=== PATIENT | male | born 1945 | race Caucasian/White ===

== ENCOUNTER 2016-05-28 06:36 | Emergency (ER) | payer OTHER ==
[~2016-05-28] VITALS: Ht 170.2 cm; Wt 83.1 kg
[~2016-05-28 06:36] MED LIST: ATORVASTATIN CA40 MG PO; DIOVAN HCT 3201 EAC1 PO; DITROPAN XL10 MG PO; DOXYCYCLINE HY100 M3 PO; MECLIZINE HCL12.5 M1 PO; NORCO 5/3251 TABLET PO; OXYBUTYNIN CHLO10 MG PO; PERCOCET 5/31 TABLET PO; PLAVIX75 MG PO; SKELAXIN800 MG PO; TAMSULOSIN HCL0.4 MG PO; TYLENOL WITH C1 EACH PO; statin; toprol
[2016-05-28 07:27] LABS: HEMATOCRIT 38.7 % (38.0-50.0); MCH 29.6 PG (29.0-34.0); MCHC 33.1 G/DL (30.0-36.0); MCV 89.6 FL (86-99); MEAN PLAT.VOLUME 10.4 uM^3 (9.0-12.4); PLATELET COUNT 267 K/uL (156-360); RBC DIS.WIDTH-SD 42.8 % (39-53); RED BLOOD COUNT 4.32 M/uL (4.00-5.50); WHITE BLOOD COUNT 6.1 K/uL (4.1-10.2)
[2016-05-28 07:54] LABS: ANION GAP 7 MEQ/L (2-14); CHLORIDE 105 MEQ/L (99-109); POTASSIUM 4.1 MEQ/L (3.7-5.4); SAMPLE HEMOLYSIS CHECK 0; SAMPLE ICTERIC CHECK 0; SAMPLE LIPEMIA CHECK 0; SODIUM 137 MEQ/L (136-147); TOTAL BILIRUBIN 0.3 MG/DL (0.0-1.0)
[2016-05-28 08:00] LABS: ALKALINE PHOSPHATASE 59 IU/L (3-129); GFR ESTIMATE (CALCULATED) > 59 mL/min/; GLUCOSE 102 mg/dL (70-99); LIPASE 13 U/L (1.0-51.0); UREA NITROGEN (BUN) 22 mg/dL (9-23)
[2016-05-28] MEDS ORDERED: LO-DOSE ASPIRIN81 M2 PO (08:00)
[2016-05-28 08:04] LABS: TROP-I INTERPRETATION NEGATIVE; TROPONIN-I 0.01 ng/mL (0.0-0.30)
[2016-05-28] MEDS ORDERED: CITRATE OF MAG296 ML PO (09:53)
[2016-05-28 09:55] LABS: ADD MIUA? NO; BILIRUBIN NEGATIVE; BLOOD NEGATIVE; COLOR STRAW ((YELLOW)); GLUCOSE (STRIP) NEGATIVE; KETONES NEGATIVE; LEUKOCYTES NEGATIVE; NITRITE NEGATIVE; PROTEIN (STRIP) NEGATIVE; SPECIFIC GRAVITY 1.027 (1.000-1.030); UROBILINOGEN 0.2 MG/DL (0.2-1.0)
[2016-05-28 10:28] VITALS: BP 145/81
== END 2016-05-28 10:29 | disposition home or self-care (01) ==
LOC: EME 06:36
PROVIDERS: Physician Assistant
DX: R10.10 Upper abdominal pain, unspecified (principal); K59.00 Constipation, unspecified; I10 Essential (primary) hypertension; Z79.02 Long term (current) use of antithrombotics/antiplatelets; Z79.82 Long term (current) use of aspirin
CPT/HCPCS: 71020; 74177; 80053; 81003; 83690; 84484; 85027; 93005; 99281; 99285

== ENCOUNTER 2016-12-27 02:09 | Emergency (ER) | payer OTHER ==
[~2016-12-27] VITALS: Ht 167.6 cm; Wt 83.2 kg
[~2016-12-27 02:09] MED LIST changes: +CITRATE OF MAG296 ML PO; +LO-DOSE ASPIRIN81 M2 PO
[2016-12-27 02:47] LABS: EOSINOPHIL COUNT 0.3 K/uL (0-0.3); HEMATOCRIT 39.3 % (38.0-50.0); IMMATURE GRANULOCYTE (%) 0.2 % (0.0-0.7); INSTRUMENT ABS NEUTROPHIL CT 2.9 K/uL; LYMPHOCYTE COUNT 1.5 K/uL (1.0-2.8); MCH 30.4 PG (29.0-34.0); MCHC 33.1 G/DL (30.0-36.0); MEAN PLAT.VOLUME 10.5 uM^3 (9.0-12.4); MONOCYTE (%) 11.1 % (3-12); MONOCYTE COUNT 0.6 K/uL (0-0.8); NEUTROPHIL (%) 55.4 % (45-76); NEUTROPHIL COUNT 2.9 K/uL (1.8-6.4); PLATELET COUNT 236 K/uL (156-360); RBC DIS.WIDTH-CV 13.2 % (11.8-14.6); RBC DIS.WIDTH-SD 44.9 % (39-53); RED BLOOD COUNT 4.27 M/uL (4.00-5.50); WHITE BLOOD COUNT 5.2 K/uL (4.1-10.2)
[2016-12-27 02:56] LABS: CHLORIDE 105 mEq/L (99-109); POTASSIUM 3.7 mEq/L (3.7-5.4); SODIUM 138 mEq/L (136-147)
[2016-12-27 02:59] LABS: GLUCOSE 107 mg/dL (70-99)
[2016-12-27 03:00] LABS: ANION GAP 5 MEQ/L (2-14); TOTAL BILIRUBIN 0.4 mg/dL (0.0-1.0)
[2016-12-27 03:02] LABS: ALKALINE PHOSPHATASE 71 IU/L (3-129); GFR ESTIMATE (CALCULATED) > 59 mL/min/
[2016-12-27 03:03] LABS: UREA NITROGEN (BUN) 16 mg/dL (9-23)
[2016-12-27 03:04] LABS: DIRECT BILIRUBIN 0.1 mg/dL (0.0-0.3)
[2016-12-27 03:06] LABS: LIPASE 22 U/L (1.0-51.0)
[2016-12-27 03:27] LABS: ADD MIUA? NO; BILIRUBIN NEGATIVE; BLOOD NEGATIVE; COLOR YELLOW ((YELLOW)); GLUCOSE (STRIP) NEGATIVE; KETONES NEGATIVE; LEUKOCYTES NEGATIVE; NITRITE NEGATIVE; PROTEIN (STRIP) 30; SPECIFIC GRAVITY 1.029 (1.000-1.030); UCUL ADDED? NO; UROBILINOGEN 0.2 MG/DL (0.2-1.0)
[2016-12-27] MEDS ORDERED: LIDOCAINE700 MG TP (03:52)
[2016-12-27 06:00] VITALS: BP 168/88
== END 2016-12-27 06:01 | disposition home or self-care (01) ==
LOC: EME 02:09
PROVIDERS: Emergency Medicine
DX: R10.9 Unspecified abdominal pain (principal); K44.9 Diaphragmatic hernia without obstruction or gangrene; K40.90 Unilateral inguinal hernia, without obstruction or gangrene, not specified as recurrent; K57.30 Diverticulosis of large intestine without perforation or abscess without bleeding; R91.1 Solitary pulmonary nodule; I10 Essential (primary) hypertension; Z86.73 Personal history of transient ischemic attack (TIA), and cerebral infarction without residual deficits; Z79.02 Long term (current) use of antithrombotics/antiplatelets; Z79.82 Long term (current) use of aspirin
CPT/HCPCS: 74176; 80048; 80076; 81003; 83690; 85025; 99281; 99285; J7030

== ENCOUNTER 2017-03-30 21:42 | Emergency (ER) | payer OTHER ==
[~2017-03-30] VITALS: Ht 170.2 cm; Wt 90.0 kg
[~2017-03-30 21:42] MED LIST changes: +LIDOCAINE700 MG TP
[2017-03-30 22:14] LABS: HEMATOCRIT 40.9 % (38.0-50.0); MCH 30.4 PG (29.0-34.0); MCHC 34.2 G/DL (30.0-36.0); MCV 88.7 FL (86-99); PLATELET COUNT 263 K/uL (156-360); RBC DIS.WIDTH-SD 42.1 % (39-53); RED BLOOD COUNT 4.61 M/uL (4.00-5.50)
[2017-03-30 22:47] LABS: ALKALINE PHOSPHATASE 75 IU/L (3-129); ALT (GPT) 25 IU/L (3-49); AST (GOT) 21 IU/L (2-34); CHLORIDE 101 MEQ/L (99-109); CREATININE 0.8 MG/DL (0.6-1.3); GFR ESTIMATE (CALCULATED) > 59 mL/min/ (58.99-99999); GLUCOSE 122 mg/dL (70-99); POTASSIUM 3.9 MEQ/L (3.7-5.4); SODIUM 133 MEQ/L (136-147); TOTAL BILIRUBIN 0.4 MG/DL (0.0-1.0); TOTAL PROTEIN 6.6 G/DL (6.4-8.3); UREA NITROGEN (BUN) 18 mg/dL (9-23)
[2017-03-30] MEDS ORDERED: OMEPRAZOLE40 M1 PO (23:55)
[2017-03-31 02:19] VITALS: BP 162/89
== END 2017-03-31 02:19 | disposition home or self-care (01) ==
LOC: EME 21:42
DX: R10.31 Right lower quadrant pain (principal); I10 Essential (primary) hypertension; Z79.82 Long term (current) use of aspirin; Z86.73 Personal history of transient ischemic attack (TIA), and cerebral infarction without residual deficits; Z88.1 Allergy status to other antibiotic agents
CPT/HCPCS: 80053; 81003; 85027; 99281; 99284

== ENCOUNTER 2017-04-03 14:13 | Emergency (ER) | payer OTHER ==
[~2017-04-03] VITALS: Ht 170.2 cm; Wt 89.0 kg
[~2017-04-03 14:13] MED LIST changes: +OMEPRAZOLE40 M1 PO
[2017-04-03] MEDS ORDERED: LOTRIMIN AF SP150 GM TP (17:03)
[2017-04-03] MEDS ORDERED: NEURONTIN100 MG PO (17:03)
[2017-04-03] MEDS ORDERED: KEFLEX500 MG PO (17:03)
[2017-04-03] MEDS ORDERED: ULTRAM50 MG PO (17:03)
[2017-04-03 17:15] VITALS: BP 145/68
== END 2017-04-03 17:17 | disposition home or self-care (01) ==
LOC: EME 14:13
DX: B35.3 Tinea pedis (principal); I10 Essential (primary) hypertension; Z79.82 Long term (current) use of aspirin; Z79.02 Long term (current) use of antithrombotics/antiplatelets; Z88.1 Allergy status to other antibiotic agents
CPT/HCPCS: 99281; 99283

== ENCOUNTER → 2017-04-20 | Outpatient (CLI) | payer OTHER ==
[~2017-04-20] MED LIST changes: +CEFTIN250 MG PO; +KEFLEX500 MG PO; +LEVAQUIN500 MG PO; +LOTRIMIN AF SP150 GM TP; +NEURONTIN100 MG PO; +ULTRAM50 MG PO
[2017-04-20 17:57] LABS: APPEARANCE CLEAR, COLORLESS; CSF TUBE NUMBER TUBE #4; RED CELL COUNT 27 /MM^3 (0-1)
[2017-04-20 17:58] LABS: WHITE CELL COUNT 0 /MM^3 (0-5)
[2017-04-20 18:00] LABS: CSF EOSINOPHILS 0 % (0-25)
[2017-04-20 18:01] LABS: MONONUCLEAR WBC'S 0 % (50-90); POLYNUCLEAR WBC'S 0 % (0-3)
[2017-04-20 18:36] LABS: APPEARANCE (RECHECK) CLEAR, COLORLESS; CSF TUBE NUMBER (RECHECK) TUBE #1; RED CELL COUNT (RECHECK) 58 /MM^3 (0-1)
[2017-04-20 18:37] LABS: GLUCOSE, CSF 76 mg/dL (40-80)
== END | disposition home or self-care (01) ==
LOC: RAD 14:45
PROVIDERS: Psychiatry & Neurology Neurology
PROC: 009U3ZZ Drainage of Spinal Canal, Percutaneous Approach (ICD-10-PCS; principal; 2017-04-20)
DX: R27.0 Ataxia, unspecified (principal)
CPT/HCPCS: 36415; 62270; 77003; 82746; 82945; 85652; 86592 90; 87070; 87205; 88108; 89051

== ENCOUNTER 2017-04-25 02:46 | Emergency (ER) | payer OTHER ==
[~2017-04-25] VITALS: Ht 167.6 cm; Wt 86.8 kg
[~2017-04-25 02:46] MED LIST changes: -CEFTIN250 MG PO; -LEVAQUIN500 MG PO
[2017-04-25 03:51] LABS: BASOPHIL (%) 0.4 % (0-1); EOSINOPHIL (%) 3.9 % (0-5); EOSINOPHIL COUNT 0.3 K/uL (0-0.3); HEMATOCRIT 38.2 % (38.0-50.0); IMMATURE GRANULOCYTE (%) 0.3 % (0.0-0.7); LYMPHOCYTE (%) 10.8 % (15-42); LYMPHOCYTE COUNT 0.8 K/uL (1.0-2.8); MCH 30.2 PG (29.0-34.0); MCV 88.8 FL (86-99); MONOCYTE (%) 8.4 % (3-12); MONOCYTE COUNT 0.6 K/uL (0-0.8); NEUTROPHIL (%) 76.2 % (45-76); NEUTROPHIL COUNT 5.8 K/uL (1.8-6.4); PLATELET COUNT 224 K/uL (156-360); RBC DIS.WIDTH-SD 42.4 % (39-53); WHITE BLOOD COUNT 7.7 K/uL (4.1-10.2)
[2017-04-25 04:01] LABS: CHLORIDE 106 mEq/L (99-109); POTASSIUM 4.2 mEq/L (3.7-5.4); SODIUM 138 mEq/L (136-147)
[2017-04-25 04:02] LABS: GLUCOSE 101 mg/dL (70-99)
[2017-04-25 04:06] LABS: CREATININE 0.8 mg/dL (0.6-1.3); GFR ESTIMATE (CALCULATED) > 59 mL/min/ (58.99-99999)
[2017-04-25 04:07] LABS: UREA NITROGEN (BUN) 19 mg/dL (9-23)
[2017-04-25] MEDS ORDERED: LEVAQUIN500 MG PO (04:51)
[2017-04-25 05:15] VITALS: BP 148/74
[2017-04-25] MEDS ORDERED: CEFTIN250 MG PO (19:36)
== END 2017-04-25 05:15 | disposition home or self-care (01) ==
LOC: EME 02:46
PROVIDERS: Emergency Medicine
DX: J20.9 Acute bronchitis, unspecified (principal); J06.9 Acute upper respiratory infection, unspecified; S93.402A Sprain of unspecified ligament of left ankle, initial encounter; X50.1XXA Overexertion from prolonged static or awkward postures, initial encounter; Z86.73 Personal history of transient ischemic attack (TIA), and cerebral infarction without residual deficits; I10 Essential (primary) hypertension; Z79.82 Long term (current) use of aspirin; Z79.02 Long term (current) use of antithrombotics/antiplatelets; Z88.1 Allergy status to other antibiotic agents
CPT/HCPCS: 71046; 73610; 80048; 85025; 87502; 99281; 99284

== ENCOUNTER 2017-04-25 15:46 | Emergency (ER) | payer OTHER ==
[~2017-04-25] VITALS: Ht 167.6 cm; Wt 88.5 kg
[~2017-04-25 15:46] MED LIST changes: +LEVAQUIN500 MG PO
[2017-04-25 16:26] LABS: APPEARANCE CLEAR ((CLEAR)); BILIRUBIN NEGATIVE; BLOOD NEGATIVE; COLOR YELLOW ((YELLOW)); GLUCOSE (STRIP) NEGATIVE; KETONES NEGATIVE; LEUKOCYTES NEGATIVE; NITRITE NEGATIVE; PROTEIN (STRIP) NEGATIVE; SPECIFIC GRAVITY 1.018 (1.000-1.030); UCUL ADDED? NO; UROBILINOGEN 0.2 MG/DL (0.2-1.0)
[2017-04-25 16:49] LABS: BASOPHIL (%) 0.1 % (0-1); EOSINOPHIL (%) 1.3 % (0-5); EOSINOPHIL COUNT 0.1 K/uL (0-0.3); HEMATOCRIT 38.8 % (38.0-50.0); HEMOGLOBIN 13.1 G/DL (12.5-16.6); IMMATURE GRANULOCYTE (%) 0.2 % (0.0-0.7); LYMPHOCYTE (%) 8.3 % (15-42); LYMPHOCYTE COUNT 0.8 K/uL (1.0-2.8); MCH 30.5 PG (29.0-34.0); MCHC 33.8 G/DL (30.0-36.0); MCV 90.4 FL (86-99); MONOCYTE (%) 6.7 % (3-12); MONOCYTE COUNT 0.6 K/uL (0-0.8); NEUTROPHIL (%) 83.4 % (45-76); NEUTROPHIL COUNT 7.7 K/uL (1.8-6.4); PLATELET COUNT 220 K/uL (156-360); RBC DIS.WIDTH-CV 13.2 % (11.8-14.6); RBC DIS.WIDTH-SD 43.7 % (39-53); RED BLOOD COUNT 4.29 M/uL (4.00-5.50); WHITE BLOOD COUNT 9.3 K/uL (4.1-10.2)
[2017-04-25 17:12] LABS: TROP-I INTERPRETATION NEGATIVE; TROPONIN-I < 0.01 ng/mL (0.0-0.30)
[2017-04-25 17:19] LABS: ALBUMIN 3.7 g/dL (3.2-4.8); CHLORIDE 104 mEq/L (99-109); POTASSIUM 4.2 mEq/L (3.7-5.4); SODIUM 135 mEq/L (136-147)
[2017-04-25 17:21] LABS: GLUCOSE 115 mg/dL (70-99)
[2017-04-25 17:22] LABS: TOTAL PROTEIN 6.6 g/dL (6.4-8.3)
[2017-04-25 17:23] LABS: TOTAL BILIRUBIN 0.4 mg/dL (0.0-1.0)
[2017-04-25 17:24] LABS: SERUM ETHYL ALCOHOL < 10 mg/dL
[2017-04-25 17:25] LABS: ALKALINE PHOSPHATASE 87 IU/L (3-129); CREATININE 0.9 mg/dL (0.6-1.3); GFR ESTIMATE (CALCULATED) > 59 mL/min/ (58.99-99999)
[2017-04-25 17:26] LABS: UREA NITROGEN (BUN) 17 mg/dL (9-23)
[2017-04-25 17:27] LABS: AST (GOT) 24 IU/L (2-34)
[2017-04-25 17:28] LABS: ALT (GPT) 22 IU/L (3-49); CREATINE KINASE 104 IU/L (1-294); TOTAL CK 104 IU/L (1-294)
[2017-04-25 17:34] LABS: CK-MB 1.8 ng/mL (0.0-4.9); CKMB RELATIVE INDEX 1.7 (0.0-3.9)
[2017-04-25] MEDS ORDERED: CEFTIN250 MG PO (19:36)
[2017-04-25 20:20] VITALS: BP 154/87
== END 2017-04-25 20:22 | disposition home or self-care (01) ==
LOC: EME 15:46
PROVIDERS: Emergency Medicine
DX: R53.1 Weakness (principal); J01.90 Acute sinusitis, unspecified; R26.2 Difficulty in walking, not elsewhere classified; I10 Essential (primary) hypertension; Z59.0 Homelessness; Z86.73 Personal history of transient ischemic attack (TIA), and cerebral infarction without residual deficits; Z79.82 Long term (current) use of aspirin; Z88.1 Allergy status to other antibiotic agents
CPT/HCPCS: 70450; 70486; 72125; 80053; 81003; 82550; 82553; 84484; 85025 91; 87651 90; 93005; 99281; 99285; G0480

== ENCOUNTER 2017-04-28 10:32 | Emergency (ER) | payer OTHER ==
[~2017-04-28] VITALS: Ht 167.6 cm; Wt 88.5 kg
[~2017-04-28 10:32] MED LIST changes: +CEFTIN250 MG PO
[2017-04-28] MEDS ORDERED: BENADRYL50 MG PO (14:35)
[2017-04-28] MEDS ORDERED: AFRIN,GENASAL D15 ML BOTH NARES (14:35)
[2017-04-28 15:25] VITALS: BP 0/0
== END 2017-04-28 15:29 | disposition home or self-care (01) ==
LOC: EME 10:32
DX: J32.9 Chronic sinusitis, unspecified (principal); I10 Essential (primary) hypertension; Z79.82 Long term (current) use of aspirin; Z79.02 Long term (current) use of antithrombotics/antiplatelets; Z86.73 Personal history of transient ischemic attack (TIA), and cerebral infarction without residual deficits; Z87.448 Personal history of other diseases of urinary system; Z88.1 Allergy status to other antibiotic agents
CPT/HCPCS: 71046; 99281; 99283

== ENCOUNTER 2017-06-20 11:13 | Emergency (ER) | payer OTHER ==
[~2017-06-20] VITALS: Ht 167.6 cm; Wt 84.7 kg
[~2017-06-20 11:13] MED LIST changes: +AFRIN,GENASAL D15 ML BOTH NARES; +BENADRYL50 MG PO
[2017-06-20 12:12] LABS: HEMATOCRIT 41.1 % (38.0-50.0); HEMOGLOBIN 14.2 G/DL (12.5-16.6); MCH 30.1 PG (29.0-34.0); MCHC 34.5 G/DL (30.0-36.0); MCV 87.3 FL (86-99); RBC DIS.WIDTH-CV 12.9 % (11.8-14.6); RED BLOOD COUNT 4.71 M/uL (4.00-5.50); WHITE BLOOD COUNT 6.6 K/uL (4.1-10.2)
[2017-06-20 12:25] LABS: APPEARANCE CLEAR ((CLEAR)); BILIRUBIN NEGATIVE; BLOOD NEGATIVE; COLOR YELLOW ((YELLOW)); GLUCOSE (STRIP) NEGATIVE; KETONES NEGATIVE; LEUKOCYTES NEGATIVE; NITRITE NEGATIVE; PROTEIN (STRIP) 100; SPECIFIC GRAVITY 1.014 (1.000-1.030); UROBILINOGEN 0.2 MG/DL (0.2-1.0)
[2017-06-20 12:27] LABS: CHLORIDE 105 mEq/L (99-109); POTASSIUM 4.3 mEq/L (3.7-5.4); SODIUM 138 mEq/L (136-147)
[2017-06-20 12:29] LABS: GLUCOSE 126 mg/dL (70-99); TOTAL PROTEIN 6.7 g/dL (6.4-8.3)
[2017-06-20 12:30] LABS: BACTERIA NONE SEEN /HPF; EPITHELIAL CELLS NONE SEEN /HPF; MUCUS NONE SEEN /LPF; RED BLOOD CELLS 0-5 /HPF (0-5); WHITE BLOOD CELLS 0-5 /HPF (0-5)
[2017-06-20 12:31] LABS: TOTAL BILIRUBIN 0.4 mg/dL (0.0-1.0)
[2017-06-20 12:32] LABS: SERUM ETHYL ALCOHOL < 10 mg/dL
[2017-06-20 12:33] LABS: ALKALINE PHOSPHATASE 92 IU/L (3-129); GFR ESTIMATE (CALCULATED) > 59 mL/min/ (58.99-99999)
[2017-06-20 12:34] LABS: UREA NITROGEN (BUN) 16 mg/dL (9-23)
[2017-06-20 12:35] LABS: AMPHETAMINE NEGATIVE (500 ng/mL); BARBITURATES NEGATIVE (200 ng/mL); BENZODIAZEPINES NEGATIVE (150 ng/mL); BUPRENORPHINE NEGATIVE (10 ng/mL); COCAINE NEGATIVE (150 ng/mL); METHADONE NEGATIVE (200 ng/mL); METHAMPHETAMINE NEGATIVE (500 ng/mL); OPIATES (MORPHINE) NEGATIVE (100 ng/mL); OXYCODONE NEGATIVE (100 ng/mL); PHENCYCLIDINE NEGATIVE (25 ng/mL); PROPOXYPHENE NEGATIVE (300 ng/mL); THC CANNABINOIDS NEGATIVE (50 ng/mL); TRICYCLIC ANTIDEPRESSANTS NEGATIVE (300 ng/mL)
[2017-06-20 12:36] LABS: ALT (GPT) 33 IU/L (3-49)
[2017-06-20 12:51] LABS: PLAT.SUFFICIENCY ADEQUATE; PLATELET COUNT 237 K/uL (156-360)
[2017-06-20 13:24] VITALS: BP 218/97
[2017-06-20 13:59] LABS: AST (GOT) 27 IU/L (2-34)
== END 2017-06-20 13:25 | disposition home or self-care (01) ==
LOC: EME 11:13
PROVIDERS: Emergency Medicine
DX: F03.90 Unspecified dementia, unspecified severity, without behavioral disturbance, psychotic disturbance, mood disturbance, and anxiety (principal); F43.25 Adjustment disorder with mixed disturbance of emotions and conduct; Z04.6 Encounter for general psychiatric examination, requested by authority; I10 Essential (primary) hypertension; Z86.73 Personal history of transient ischemic attack (TIA), and cerebral infarction without residual deficits
CPT/HCPCS: 80053; 81003; 85027; 90837; 99281; 99284; G0480

== ENCOUNTER 2017-06-26 19:58 | Inpatient (IN) | payer OTHER ==
[~2017-06-26] VITALS: Ht 168.9 cm; Wt 89.0 kg
[2017-06-26 21:27] LABS: BASOPHIL (%) 0.2 % (0-1); EOSINOPHIL (%) 0.1 % (0-5); HEMATOCRIT 41.3 % (38.0-50.0); IMMATURE GRANULOCYTE (%) 0.9 % (0.0-0.7); LYMPHOCYTE (%) 3.2 % (15-42); LYMPHOCYTE COUNT 0.6 K/uL (1.0-2.8); MCH 30.2 PG (29.0-34.0); MCHC 33.9 G/DL (30.0-36.0); MCV 89.2 FL (86-99); MONOCYTE (%) 3.6 % (3-12); MONOCYTE COUNT 0.7 K/uL (0-0.8); PLATELET COUNT 251 K/uL (156-360); RBC DIS.WIDTH-CV 13.2 % (11.8-14.6); RBC DIS.WIDTH-SD 42.9 % (39-53); RED BLOOD COUNT 4.63 M/uL (4.00-5.50); WHITE BLOOD COUNT 18.5 K/uL (4.1-10.2)
[2017-06-26 21:34] LABS: ALBUMIN 3.8 g/dL (3.2-4.8)
[2017-06-26 21:35] LABS: CHLORIDE 103 mEq/L (99-109); PTT 21.2 SEC (25-37); SODIUM 136 mEq/L (136-147)
[2017-06-26 21:36] LABS: AMYLASE 45 IU/L (1-118)
[2017-06-26 21:37] LABS: GLUCOSE 165 mg/dL (70-99); TOTAL PROTEIN 6.5 g/dL (6.4-8.3)
[2017-06-26 21:39] LABS: TOTAL BILIRUBIN 0.3 mg/dL (0.0-1.0)
[2017-06-26 21:40] LABS: ALKALINE PHOSPHATASE 75 IU/L (3-129); SERUM ETHYL ALCOHOL < 10 mg/dL
[2017-06-26 21:41] LABS: CREATININE 0.9 mg/dL (0.6-1.3); GFR ESTIMATE (CALCULATED) > 59 mL/min/ (58.99-99999)
[2017-06-26 21:42] LABS: AST (GOT) 24 IU/L (2-34); UREA NITROGEN (BUN) 16 mg/dL (9-23)
[2017-06-26 21:44] LABS: ALT (GPT) 29 IU/L (3-49); LIPASE 13 U/L (1.0-51.0)
[2017-06-26 22:11] LABS: TROP-I INTERPRETATION NEGATIVE; TROPONIN-I < 0.01 ng/mL (0.0-0.30)
[2017-06-26 23:01] LABS: APPEARANCE CLEAR ((CLEAR)); BILIRUBIN NEGATIVE; BLOOD NEGATIVE; COLOR STRAW ((YELLOW)); GLUCOSE (STRIP) 50; KETONES NEGATIVE; LEUKOCYTES NEGATIVE; NITRITE NEGATIVE; PROTEIN (STRIP) 30; SPECIFIC GRAVITY 1.021 (1.000-1.030); UCUL ADDED? NO; UROBILINOGEN 0.2 MG/DL (0.2-1.0)
[2017-06-26 23:13] LABS: AMPHETAMINE NEGATIVE (500 ng/mL); BARBITURATES NEGATIVE (200 ng/mL); BENZODIAZEPINES NEGATIVE (150 ng/mL); BUPRENORPHINE NEGATIVE (10 ng/mL); COCAINE NEGATIVE (150 ng/mL); METHADONE NEGATIVE (200 ng/mL); METHAMPHETAMINE NEGATIVE (500 ng/mL); OPIATES (MORPHINE) NEGATIVE (100 ng/mL); OXYCODONE NEGATIVE (100 ng/mL); PHENCYCLIDINE NEGATIVE (25 ng/mL); PROPOXYPHENE NEGATIVE (300 ng/mL); THC CANNABINOIDS NEGATIVE (50 ng/mL); TRICYCLIC ANTIDEPRESSANTS NEGATIVE (300 ng/mL)
[2017-06-27] VITALS (23 sets, daily range): BP systolic 100–195; BP diastolic 44–107
[2017-06-27 05:19] LABS: HEMATOCRIT 40.4 % (38.0-50.0); HEMOGLOBIN 13.5 G/DL (12.5-16.6); MCH 29.6 PG (29.0-34.0); MCHC 33.4 G/DL (30.0-36.0); MCV 88.6 FL (86-99); PLATELET COUNT 288 K/uL (156-360); RBC DIS.WIDTH-CV 13.1 % (11.8-14.6); RBC DIS.WIDTH-SD 42.5 % (39-53); RED BLOOD COUNT 4.56 M/uL (4.00-5.50); WHITE BLOOD COUNT 9.5 K/uL (4.1-10.2)
[2017-06-27 05:45] LABS: CHLORIDE 102 MEQ/L (99-109); CREATININE 0.8 MG/DL (0.6-1.3); GFR ESTIMATE (CALCULATED) > 59 mL/min/ (58.99-99999); GLUCOSE 152 mg/dL (70-99); SODIUM 136 MEQ/L (136-147); UREA NITROGEN (BUN) 15 mg/dL (9-23)
[2017-06-27] MEDS ORDERED: LO-DOSE ASPIRIN81 M1 PO (11:40)
[2017-06-27] MEDS ORDERED: VITAMIN D35000 UNIT/ PO (11:40)
[2017-06-27] MEDS ORDERED: DIOVAN320 MG PO (11:41)
[2017-06-27] MEDS ORDERED: FLONASE16 G1 BOTH NARES (11:41)
[2017-06-27] MEDS ORDERED: PROAIR HFA8.5 GM IH (11:42)
[2017-06-27] MEDS ORDERED: ULTRAM50 MG PO (11:43)
[2017-06-27] MEDS ORDERED: VITAMIN B122500 MCG PO (11:44)
[2017-06-27] MEDS ORDERED: [UNRECOGNIZED DRUG - OTHER] PO (11:45)
[2017-06-27] MEDS ORDERED: GLUCOSAMINE &1 EAC1 PO (11:46)
[2017-06-28] VITALS (15 sets, daily range): BP systolic 105–170; BP diastolic 52–87
[2017-06-28 05:28] LABS: BASOPHIL (%) 0.1 % (0-1); EOSINOPHIL (%) 0.1 % (0-5); HEMATOCRIT 38.8 % (38.0-50.0); HEMOGLOBIN 12.7 G/DL (12.5-16.6); IMMATURE GRANULOCYTE (%) 0.3 % (0.0-0.7); LYMPHOCYTE (%) 9.9 % (15-42); LYMPHOCYTE COUNT 1.3 K/uL (1.0-2.8); MCH 29.6 PG (29.0-34.0); MCHC 32.7 G/DL (30.0-36.0); MCV 90.4 FL (86-99); MONOCYTE (%) 7.9 % (3-12); MONOCYTE COUNT 1.1 K/uL (0-0.8); NEUTROPHIL (%) 81.7 % (45-76); PLATELET COUNT 282 K/uL (156-360); RBC DIS.WIDTH-CV 13.7 % (11.8-14.6); RBC DIS.WIDTH-SD 45.2 % (39-53); RED BLOOD COUNT 4.29 M/uL (4.00-5.50); WHITE BLOOD COUNT 13.5 K/uL (4.1-10.2)
[2017-06-28 06:23] LABS: CHLORIDE 105 MEQ/L (99-109); GFR ESTIMATE (CALCULATED) > 59 mL/min/ (58.99-99999); MAGNESIUM 2.2 mg/dl (1.3-2.7); POTASSIUM 4.3 MEQ/L (3.7-5.4); SODIUM 138 MEQ/L (136-147); UREA NITROGEN (BUN) 22 mg/dL (9-23)
[2017-06-28 06:29] LABS: GLUCOSE 103 mg/dL (70-99)
[2017-06-29] VITALS (8 sets, daily range): BP systolic 136–176; BP diastolic 63–84
[2017-06-30] VITALS (7 sets, daily range): BP systolic 95–155; BP diastolic 5–86
[2017-06-30 10:21] LABS: BASOPHIL (%) 0.4 % (0-1); EOSINOPHIL (%) 0.8 % (0-5); EOSINOPHIL COUNT 0.1 K/uL (0-0.3); HEMATOCRIT 42.5 % (38.0-50.0); HEMOGLOBIN 14.1 G/DL (12.5-16.6); IMMATURE GRANULOCYTE (%) 0.4 % (0.0-0.7); LYMPHOCYTE (%) 14.3 % (15-42); LYMPHOCYTE COUNT 1.2 K/uL (1.0-2.8); MCH 30.1 PG (29.0-34.0); MCHC 33.2 G/DL (30.0-36.0); MCV 90.6 FL (86-99); MONOCYTE (%) 7.2 % (3-12); MONOCYTE COUNT 0.6 K/uL (0-0.8); NEUTROPHIL (%) 76.9 % (45-76); NEUTROPHIL COUNT 6.4 K/uL (1.8-6.4); PLATELET COUNT 274 K/uL (156-360); RBC DIS.WIDTH-CV 13.2 % (11.8-14.6); RBC DIS.WIDTH-SD 43.8 % (39-53); RED BLOOD COUNT 4.69 M/uL (4.00-5.50); WHITE BLOOD COUNT 8.3 K/uL (4.1-10.2)
[2017-06-30 10:39] LABS: CHLORIDE 103 MEQ/L (99-109); CREATININE 0.9 MG/DL (0.6-1.3); GFR ESTIMATE (CALCULATED) > 59 mL/min/ (58.99-99999); GLUCOSE 195 mg/dL (70-99); POTASSIUM 4.3 MEQ/L (3.7-5.4); SODIUM 136 MEQ/L (136-147); UREA NITROGEN (BUN) 19 mg/dL (9-23)
[2017-07-01 03:29] VITALS: BP 151/78
[2017-07-01 07:49] VITALS: BP 166/80
[2017-07-01 11:23] VITALS: BP 126/59
[2017-07-01] MEDS ORDERED: AMOX TR-K CLV1 EAC4 PO (11:52)
[2017-07-01] MEDS ORDERED: AMLODIPINE BESYL5 MG PO (11:52)
[2017-07-01] MEDS ORDERED: ATORVASTATIN CA40 MG PO (11:57)
[2017-07-01 15:41] VITALS: BP 124/58
[2017-07-01 19:31] VITALS: BP 143/75
[2017-07-01 23:47] VITALS: BP 121/58
[2017-07-02 01:38] VITALS: BP 136/87
[2017-07-02 07:50] VITALS: BP 131/84
== END 2017-07-02 13:46 | DRG 65 ==
LOC: EME → DELPENDDIS → EDBD 19:58 → EME 19:58 → 4WEST 22:52 → 4EAST 22:52 → EDOF 22:52 → ENRESERV 22:53 → 4WEST 06-27 01:35 → ENRESERV 06-28 18:19 → 4EAST 06-28 20:16 → ENRESERV 06-29 13:03 → 5SOUTH 06-29 14:37 → ENPENDDIS 07-01 11:56 → 5SOUTH 07-02 13:46
PROVIDERS: Emergency Medicine; Internal Medicine; Internal Medicine Critical Care Medicine; Specialist
DX: I61.4 Nontraumatic intracerebral hemorrhage in cerebellum (principal); R27.0 Ataxia, unspecified; H53.2 Diplopia; R47.81 Slurred speech; H55.00 Unspecified nystagmus; R53.1 Weakness; R29.705 NIHSS score 5; I16.1 Hypertensive emergency; I10 Essential (primary) hypertension; G91.2 (Idiopathic) normal pressure hydrocephalus; J32.0 Chronic maxillary sinusitis; N40.0 Benign prostatic hyperplasia without lower urinary tract symptoms; Z86.73 Personal history of transient ischemic attack (TIA), and cerebral infarction without residual deficits; Z91.81 History of falling
CPT/HCPCS: 70450; 70496; 70498; 71045; 80048; 80053; 81003; 82150; 83690; 83735; 84100; 84484; 85025; 85027; 85610; 85730; 86850; 86900; 86901; 87641; 92523 GN; 93005; 97530 GP; 99281; 99285; G0480; G0515 GN; J0360; J1100; J2405; J7050

== ENCOUNTER 2017-07-11 15:29 | Emergency (ER) | payer OTHER ==
[~2017-07-11] VITALS: Ht 170.2 cm; Wt 83.4 kg
[~2017-07-11 15:29] MED LIST changes: +AMLODIPINE BESYL5 MG PO; +AMOX TR-K CLV1 EAC4 PO; +DIOVAN320 MG PO; +FLONASE16 G1 BOTH NARES; +GLUCOSAMINE &1 EAC1 PO; +LO-DOSE ASPIRIN81 M1 PO; +PROAIR HFA8.5 GM IH; +VITAMIN B122500 MCG PO; +VITAMIN D35000 UNIT/ PO; +[UNRECOGNIZED DRUG - OTHER] PO
[2017-07-11 16:11] LABS: HEMATOCRIT 41.2 % (38.0-50.0); HEMOGLOBIN 14.3 G/DL (12.5-16.6); MCH 30.8 PG (29.0-34.0); MCHC 34.7 G/DL (30.0-36.0); MCV 88.8 FL (86-99); PLATELET COUNT 231 K/uL (156-360); RBC DIS.WIDTH-CV 12.9 % (11.8-14.6); RED BLOOD COUNT 4.64 M/uL (4.00-5.50)
[2017-07-11 16:38] LABS: CHLORIDE 101 mEq/L (99-109); POTASSIUM 4.5 mEq/L (3.7-5.4); SODIUM 137 mEq/L (136-147)
[2017-07-11 16:40] LABS: GLUCOSE 117 mg/dL (70-99)
[2017-07-11 16:44] LABS: CREATININE 0.8 mg/dL (0.6-1.3); GFR ESTIMATE (CALCULATED) > 59 mL/min/ (58.99-99999)
[2017-07-11 16:45] LABS: UREA NITROGEN (BUN) 15 mg/dL (9-23)
[2017-07-11 21:40] VITALS: BP 181/99
== END 2017-07-11 21:41 ==
LOC: EME → EDBD 15:29 → EME 15:29
DX: R42 Dizziness and giddiness (principal); Z86.73 Personal history of transient ischemic attack (TIA), and cerebral infarction without residual deficits; F32.9 Major depressive disorder, single episode, unspecified; F41.9 Anxiety disorder, unspecified; I10 Essential (primary) hypertension; Z88.1 Allergy status to other antibiotic agents
CPT/HCPCS: 70450; 80048; 85027; 99281; 99285

== ENCOUNTER 2017-07-29 11:17 | Emergency (ER) | payer OTHER ==
[~2017-07-29] VITALS: Ht 172.7 cm; Wt 83.3 kg
[2017-07-29 14:10] LABS: HEMATOCRIT 39.3 % (38.0-50.0); HEMOGLOBIN 13.5 G/DL (12.5-16.6); MCH 30.8 PG (29.0-34.0); MCHC 34.4 G/DL (30.0-36.0); MCV 89.7 FL (86-99); PLATELET COUNT 208 K/uL (156-360); RBC DIS.WIDTH-CV 12.9 % (11.8-14.6); RBC DIS.WIDTH-SD 42.5 % (39-53); RED BLOOD COUNT 4.38 M/uL (4.00-5.50); WHITE BLOOD COUNT 5.9 K/uL (4.1-10.2)
[2017-07-29 14:22] LABS: CHLORIDE 105 mEq/L (99-109); POTASSIUM 4.1 mEq/L (3.7-5.4); SODIUM 141 mEq/L (136-147)
[2017-07-29 14:24] LABS: GLUCOSE 96 mg/dL (70-99)
[2017-07-29 14:28] LABS: CREATININE 0.7 mg/dL (0.6-1.3); GFR ESTIMATE (CALCULATED) > 59 mL/min/ (58.99-99999)
[2017-07-29 14:29] LABS: UREA NITROGEN (BUN) 11 mg/dL (9-23)
[2017-07-29 14:38] LABS: TROP-I INTERPRETATION NEGATIVE; TROPONIN-I < 0.01 ng/mL (0.0-0.30)
[2017-07-29] MEDS ORDERED: AMLODIPINE BESYL5 MG PO (16:00)
[2017-07-29 16:40] VITALS: BP 174/104
== END 2017-07-29 16:40 | disposition home or self-care (01) ==
LOC: EME 11:17
PROVIDERS: Emergency Medicine
DX: I10 Essential (primary) hypertension (principal); R51 Headache; Z86.73 Personal history of transient ischemic attack (TIA), and cerebral infarction without residual deficits; F32.9 Major depressive disorder, single episode, unspecified; F41.9 Anxiety disorder, unspecified
CPT/HCPCS: 70450; 80048; 84484; 85027; 93005; 99281; 99285

== ENCOUNTER 2017-08-26 13:04 | Emergency (ER) | payer OTHER ==
[~2017-08-26] VITALS: Ht 170.2 cm; Wt 80.1 kg
[2017-08-26 13:48] LABS: BASOPHIL (%) 0.4 % (0-1); EOSINOPHIL (%) 0.7 % (0-5); EOSINOPHIL COUNT 0.1 K/uL (0-0.3); HEMATOCRIT 39.3 % (38.0-50.0); HEMOGLOBIN 13.6 G/DL (12.5-16.6); IMMATURE GRANULOCYTE (%) 0.3 % (0.0-0.7); LYMPHOCYTE (%) 12.6 % (15-42); LYMPHOCYTE COUNT 0.9 K/uL (1.0-2.8); MCH 30.4 PG (29.0-34.0); MCHC 34.6 G/DL (30.0-36.0); MCV 87.7 FL (86-99); MONOCYTE (%) 6.3 % (3-12); MONOCYTE COUNT 0.4 K/uL (0-0.8); NEUTROPHIL (%) 79.7 % (45-76); NEUTROPHIL COUNT 5.6 K/uL (1.8-6.4); PLATELET COUNT 230 K/uL (156-360); RBC DIS.WIDTH-CV 13.2 % (11.8-14.6); RBC DIS.WIDTH-SD 42.6 % (39-53); RED BLOOD COUNT 4.48 M/uL (4.00-5.50)
[2017-08-26 13:57] LABS: ALBUMIN 3.8 g/dL (3.2-4.8); CHLORIDE 107 mEq/L (99-109); POTASSIUM 3.9 mEq/L (3.7-5.4); SODIUM 141 mEq/L (136-147)
[2017-08-26 14:00] LABS: GLUCOSE 95 mg/dL (70-99); TOTAL PROTEIN 6.3 g/dL (6.4-8.3)
[2017-08-26 14:02] LABS: TOTAL BILIRUBIN 0.5 mg/dL (0.0-1.0)
[2017-08-26 14:03] LABS: ALKALINE PHOSPHATASE 84 IU/L (3-129)
[2017-08-26 14:04] LABS: CREATININE 0.8 mg/dL (0.6-1.3); GFR ESTIMATE (CALCULATED) > 59 mL/min/ (58.99-99999)
[2017-08-26 14:05] LABS: AST (GOT) 15 IU/L (2-34); DIRECT BILIRUBIN 0.2 mg/dL (0.0-0.3); UREA NITROGEN (BUN) 14 mg/dL (9-23)
[2017-08-26 14:06] LABS: ALT (GPT) 15 IU/L (3-49)
[2017-08-26 14:09] LABS: TROP-I INTERPRETATION NEGATIVE; TROPONIN-I < 0.01 ng/mL (0.0-0.30)
[2017-08-26 18:24] LABS: APPEARANCE CLEAR ((CLEAR)); BILIRUBIN NEGATIVE; BLOOD NEGATIVE; COLOR YELLOW ((YELLOW)); GLUCOSE (STRIP) NEGATIVE; KETONES NEGATIVE; LEUKOCYTES NEGATIVE; NITRITE NEGATIVE; PROTEIN (STRIP) 30; SPECIFIC GRAVITY 1.016 (1.000-1.030); UCUL ADDED? NO; UROBILINOGEN 0.2 MG/DL (0.2-1.0)
[2017-08-26 19:12] VITALS: BP 158/97
== END 2017-08-26 19:13 | disposition home or self-care (01) ==
LOC: EME 13:04
PROVIDERS: Emergency Medicine
DX: R53.1 Weakness (principal); I10 Essential (primary) hypertension; F32.9 Major depressive disorder, single episode, unspecified; F41.9 Anxiety disorder, unspecified; Z88.1 Allergy status to other antibiotic agents
CPT/HCPCS: 71046; 80048; 80076; 81003; 83605; 83880; 84484; 85025; 93005; 99281; 99285; J7030